=== PATIENT | male | born 1955 | race Caucasian/White ===

== ENCOUNTER 2024-02-29 09:38 | Outpatient (RCR) | payer BC, SELFPAY ==
--- NOTE | 2024-03-03 08:04 | HP.OTFCE_ITS ---
Task Lift Floor (Occasional 1-33% of Day): 65# Floor (Frequent 34-66% of Day): 32.5# Floor (Constant 67-100% of Day): 13.6# Floor PDL: Medium Knee (Occasional 1-33% of Day): 65# Knee (Frequent 34-66% of Day): 32.5# Knee (Constant 67-100% of Day): 13.6# Knee PDL: Medium Waist (Occasional 1-33% of Day): 50# Waist (Frequent 34-66% of Day): 25# Waist (Constant 67-100% of Day): 10.5# Shoulder (Occasional 1-33% of Day): 40# Shoulder (Frequent 34-66% of Day): 20# Shoulder (Constant 67-100% of Day): 8.4# Shoulder PDL: Light-Medium Overhead (Occasional 1-33% of Day): 35# Overhead (Frequent 34-66% of Day): 17.5# Overhead (Constant 67-100% of Day): 7.4# Overhead PDL: Light-Medium Comments: lifted through the back, cues for proper form and using legs for lifting Work Activity/Posture Bending: Constant Ability (67-100% of day) Squatting: Frequent Ability (34-66% of day) Kneeling: Frequent Ability (34-66% of day) Reaching out: Constant Ability (67-100% of day) Reaching up: Constant Ability (67-100% of day) Sitting: Constant Ability (67-100% of day) Walking: Constant Ability (67-100% of day) Standing: Constant Ability (67-100% of day) Reference Reference: Duration Sedentary Sedentary Light Light Light Medium Medium Medium Heavy Very Heavy Heavy Occasional (0-33% of day) Frequent (34-66% of day) Constant (67-100% of day) 10 # Negligible Negligible 15 # 8 # Negligible 20 # 10# Negli. 35 # 18 # 7 # 50 # 25 # 10 # 75 # 100 # >100 # 38 # 50 # >50 # 15 # 20 # >20 # Patient Information Height: 1.78 m Weight:: 81.103 kg Hand Dominance: right Medical History Medical History Including Restrictions: On 01/16/24, patient had a left sided intracerebral hemorrhage resulting in right sided hemiparesis. He spent 10 days in rehab at [facility]. He reports he was discharged home from the hospital and continued to complete home exercises with putty and theraband he was provided. He currently does not show any major residual deficits from the stroke. Steve has been on short term disability since he's had the stroke. Steve is unsure what exactly is the status of short term disability at this time but he is ready to go back to work. Diagnoses Diagnoses: Right hemiparesis COPD - uses inhaler medications: blood pressure, lisonopril, aldactone Symptoms Symptoms: no symptoms Pain Pain: general aches and stiffness after prolonged sitting or standing but otherwise denies pain Work History Work History: Has worked at [employer] for 8 years. He has worked in the [employer] for 48 years. He works full-time 66 hours/week. He works 12-13 hour days. He drives truck locally. He spends most of his time sitting in his truck. The physical part of his job includes bending and checking on his truck, opening/closing the hudson of the truck, cranking the lever 30 times to elevate truck trailer, taking steps up to a platform to remove tarp from back of truck (two person job) prior to dumping the load in his truck, climbing in and out of the truck. He completes these physical tasks of his job 3 times per day (3 separate loads throughout the day). He reports he does ~400 miles per day in the truck. Behavioral Behavioral: calm and cooperative throughout able to provide information about history ADLS ADLS: Lives by himself in an apartment. No stairs in the building or in the apartment. Patient has a regular bed, regular toilet, no equipment usage. Independent with all self-care and IADL's. Able to drive independently. Physical Examination Physical Examination: Independent with ambulation and functional transfers. Well-appearing, able to use all extremities functionally. ROM: overall range of motion within functional limits Strength: shoulder R flexion: 29 #/ extension 42.8#; L 39.1#/ extension 31.2# elbow R flexion: 30# / extension 27.4#; L 33.9# / extension 32.5# wrist R flexion: 19.4# / extension 18.3; L 19.6# / extension 21.4 hip R flexion: 24.7# / L: 33.0# knee R flexion: 35.5#/ extension 26.6#; L flexion 23.6# / extension 26.3# Right Tangible Personal Property Appraiser Strength Average: 87.66 Right Tangible Personal Property Appraiser Strength Percentile: 36th percentile Left Tangible Personal Property Appraiser Strength Average: 101.66 Left Tangible Personal Property Appraiser Strength Percentile: 77th percentile Right Lateral Pinch Average: 22.66 Right Lateral Pinch Percentile: 75th percentile Left Lateral Pinch Average: 21.33 Left Lateral Pinch Percentile: 90th percentile Right Tripod Pinch Average: 17.66 Right Tripod Pinch Percentile: 75th percentile Left Tripod Pinch Average: 17.33 Left Tripod Pinch Percentile: 75th percentile Sensation: intact, no concerns Fine Motor: no concerns Balance: no concerns Non Material Handling Activities Bending: able to complete 3 reps, then 10 reps, no breaks needed, no loss of balance Squatting: able to squat 3 reps then 10 reps with a small rest break between, no loss of balance or external support needed Kneeling: able to kneel both sides x 3 reps while supporting on table next to him then 1 rep each leg before starting to feel fatigued Reaching out/up: completed 10 reps slow then 10 reps fast, no difficulty or need for rest break Walking: able to walk for 10 minutes straight without rest break needed Standing: able to stand for prolonged period of time ~30 min without need for rest break Sitting: able to sit for prolonged period of time ~30-45 min without c/o pain or need to reposition Climbing Stairs: able to complete flight of steps using reciprocal pattern, using handrail for stability Dynamic Occasional Lifting Capacity Floor Lift: max lift 65# Knee Lift: max lift 65# Waist Lift: max lift 50# Shoulder Lift: max lift 40# Overhead Lift: max lift 35# Carrying: max lift 35# Comments: no complaints of pain. Needing a standing rest break after lifting tasks to catch breath but recovered in a timely manner
== END 2024-02-29 19:00 | disposition home or self-care (01) ==
LOC: OT 09:38
PROVIDERS: PCP Nurse Practitioner Adult Health; Referring Provider Nurse Practitioner Adult Health; Visit Provider Nurse Practitioner Adult Health
DX: I69.151 Hemiplegia and hemiparesis following nontraumatic intracerebral hemorrhage affecting right dominant side (principal); I61.0 Nontraumatic intracerebral hemorrhage in hemisphere, subcortical
CPT/HCPCS: 97750